=== PATIENT | female | born 1995 | race African-American/Black ===

== ENCOUNTER 2019-03-06 22:34 | Inpatient (IN) | payer OTHER ==
[~2019-03-06] VITALS: Ht 165.1 cm; Wt 64.4 kg
[2019-03-06] MEDS ORDERED: ONDANSETRON HCL INJ 2MG/ML 2ML 2 MG/ML VIAL IV STA (22:42)
[2019-03-06] MEDS ORDERED: KETOROLAC TROMETHAMINE 30 MG/ML VIAL IV STA (22:53)
[2019-03-06] MEDS ORDERED: IOPAMIDOL 370 MG/ML 200 ML INFUS..BTL INJ ONE (22:56)
[2019-03-06] MEDS: SODIUM CHLORIDE 0.9% 1000ML 1,000 ML IV SCH ×2 (22:56→23:46)
[2019-03-06] MEDS ORDERED: SODIUM CHLORIDE 0.9% 50ML 50 ML ONE (22:56)
[2019-03-06] MEDS ORDERED: POTASSIUM CHLORIDE 10MEQ EA PO ONE (23:45)
[2019-03-06] MEDS ORDERED: PIPER-TAZ 3.375 GM 50 ML IV ONE (23:45)
[2019-03-06] MEDS ORDERED: POTASSIUM CHLORIDE 20 MEQ TAB CR PO ONE (23:55)
[2019-03-07] VITALS (9 sets, daily range): BP systolic 108–132; BP diastolic 57–66
[2019-03-07] MEDS ORDERED: MORPHINE SULFATE INJ 4 MG/ML INJ 1ML IV PRN
--- NOTE | 2019-03-07 00:02 | Diagnostic Imaging Report ---
EXAM: CT Abdomen and Pelvis WITH contrast INDICATION: Abdominal Pain COMPARISON: None. TECHNIQUE: Abdomen and pelvis were scanned utilizing a multidetector helical scanner from the lung base to the pubic symphysis after administration of IV contrast. Coronal and sagittal reformations were obtained. Routine protocol was performed. Scan was performed when during portal venous phase. IV CONTRAST: 100 cc of Isovue 370 ORAL CONTRAST: Water COMPLICATIONS: None RADIATION DOSE: Total DLP: 690.4 mGy*cm Estimated effective dose: (DLP x 0.015 x size factor) mSv CTDIvol has been reviewed. It is below the limits set by the Radiation Protocol Committee (RPC). FINDINGS: LINES and TUBES: None. LOWER THORAX: Unremarkable HEPATOBILIARY: No evidence of focal lesion. No biliary ductal dilation. GALLBLADDER: The gallbladder is decompressed without evidence of wall thickening or inflammatory changes. There is trace pericholecystic fluid. SPLEEN: No splenomegaly. PANCREAS: No focal masses or ductal dilatation. ADRENALS: No adrenal nodules KIDNEYS/URETERS: Kidneys enhance symmetrically. No evidence of hydronephrosis, solid mass, or stone. GI TRACT: No evidence of wall thickening or distension. Appendix is normal. PELVIC ORGANS/BLADDER: There is a somewhat tubular appearing cystic area with simple attenuation (11 HU), measuring up to 8.4 x 4.9 cm, predominantly centered in the right adnexa extending posteriorly towards the rectum and with a small sliver extending left of midline (series 2, image 74). There is an IUD in the uterus. LYMPH NODES: No lymphadenopathy. VESSELS: Unremarkable. PERITONEUM / RETROPERITONEUM: No free air. Small amount of free fluid in the pelvis. BONES AND SOFT TISSUES: Unremarkable. CONCLUSION: Cystic area within the pelvis, predominately centered in the right adnexa, extending across midline with simple attenuation. This may represent hydrosalpinx or alternatively adnexal cyst. Pelvic ultrasound is suggested for further evaluation. IUD in the uterus. Decompressed gallbladder without wall thickening or inflammatory changes. Trace pericholecystic fluid, which may reflect volume status, with acute cholecystitis felt to be unlikely. Signed by: Dr. Brea Ferro MD on 03/06/2019 11:59 PM
--- NOTE | 2019-03-07 00:04 | NUR ---
[facility] NOTIFIED OF TRANSFER, SPOKE WITH NEELAM 30 MINUTE ETA GIVEN.
--- NOTE | 2019-03-07 01:10 | NUR ---
RECEIVED PATIENT FROM [facility] VIA EMS. PATIENT ON STRETCHER, AMBULATED TO BED, STEADY GAIT NOTED. PATIENT IS A&OX3. VERY MINIMAL PAIN REPORTED AT THIS TIME TO HER ABDOMEN. SKIN INTACT. LUNG SOUNDS CLEAR. BOWEL SOUNDS NORMAL, PATIENT REPORTS SHE HAS NOT HELD FOOD DOWN IN 5 DAYS. REMINDED PATIENT OF NPO STATUS, VERBALIZED UNDERSTANDING. L AC 20G IV ASYMPTOMATIC, INTACT, AND PATENT. NO S&S OF DISTRESS NOTED. BED LOCKED IN LOWEST POSITION, SIDE RAILS UPX2, CALL LIGHT IN REACH.
--- OUTSIDE RECORDS SUMMARY | 2019-03-07 01:24 | XMS REPORT ---
Author Author [facility] Address Unknown Phone Unavailable Care Team Providers Care Waxer Operator Name Role Phone YSABEL SILVA Unavailable Unavailable Problems This patient has no known problems. Allergies, Adverse Reactions, Alerts This patient has no known allergies or adverse reactions. Medications This patient has no known medications. Results Test Description Test Time Test Comments Text Results Atomic Results Result Comments CT ABD/PEL WITH CONTRAST-HOPD 2019-03-06 23:43:00 [place] [address] Patient Name: JOSIAS CASTANEDA MR #: [id number] : 1995 Age/Sex: 23/F Req #: [id number] Adm Physician: Ordered by: YSABEL SILVA DO Report #: [id number] Location: [facility] Room/Bed: Procedure: [id number] HOPD/CT ABD/PEL WITH CONTRAST-HOPD Exam Date: 03/06/19 Exam Time: 2337 REPORT STATUS: Signed EXAM: CT Abdomen and Pelvis WITH contrast INDICATION: Abdominal Pain COMPARISON: None. TECHNIQUE: Abdomen and pelvis were scanned utilizing a multidetector helical scanner from the lung base to the pubic symphysis after administration of IV contrast. Coronal and sagittal reformations were obtained. Routine protocol was performed. Scan was performed when during portal venous phase. IV CONTRAST: 100 cc of Isovue 370 ORAL CONTRAST: Water COMPLICATIONS: None RADIATION DOSE: Total DLP: 690.4 mGy*cm Estimated effective dose: (DLP x 0.015 x size factor) mSv CTDIvol has been reviewed. It is below the limits set by the Radiation Protocol Committee (RPC). FINDINGS: LINES and TUBES: None. LOWER THORAX: Unremarkable HEPATOBILIARY: No evidence of focal lesion. No biliary ductal dilation. GALLBLADDER: The gallbladder is decompressed without evidence of wall thickening or inflammatory changes. There is trace pericholecystic fluid. SPLEEN: No splenomegaly. PANCREAS: No focal masses or ductal dilatation. ADRENALS: No adrenal nodules KIDNEYS/URETERS: Kidneys enhance symmetrically. No evidence of hydronephrosis, solid mass, or stone. GI TRACT: No evidence of wall thickening or distension. Appendix is normal. PELVIC ORGANS/BLADDER: There is a somewhat tubular appearing cystic area with simple attenuation (11 HU), measuring up to 8.4 x 4.9 cm, predominantly centered in the right adnexa extending posteriorly towards the rectum and with a small sliver extending left of midline (series 2, image 74). There is an IUD in the uterus. LYMPH NODES: No lymphadenopathy. VESSELS: Unremarkable. PERITONEUM / RETROPERITONEUM: No free air. Small amount of free fluid in the pelvis. BONES AND SOFT TISSUES: Unremarkable. CONCLUSION: Cystic area within the pelvis, predominately centered in the right adnexa, extending across midline with simple attenuation. This may represent hydrosa lpinx or alternatively adnexal cyst. Pelvic ultrasound is suggested for further evaluation. IUD in the uterus. Decompressed gallbladder without wall thickening or inflammatory changes. Trace pericholecystic fluid, which may reflect volume status, with acute cholecystitis felt to be unlikely. Signed by: Dr. Lj Pacheco MD on 03/06/2019 11:59 PM Dictated By: LJ PACHECO MD [id number] Transcribed By: CARMEN on 03/06/19 7440 COPY TO: YSABEL SILVA DO
[2019-03-07] MEDS: SODIUM CHLORIDE 0.9% 1000ML 1,000 ML IV SCH ×4 (02:15→23:46)
[2019-03-07] MEDS: ONDANSETRON HCL INJ 2MG/ML 2ML 2 MG/ML VIAL IV PRN ×3 (05:43→23:46)
[2019-03-07 06:01] LABS: BASOPHILS % 0.5 % (0.0-1.0); HEMATOCRIT 39.3 % (34.2-44.1); HEMOGLOBIN 12.7 g/dL (12.0-16.0); LYMPHOCYTES # (AUTO) 0.5 (1.0-3.2); LYMPHOCYTES % 27.6 % (18.0-39.1); MEAN CORPUSCULAR HGB CONC 32.3 g/dL (31-35); MEAN CORPUSCULAR VOLUME 83.4 fL (81-99); MONOCYTES # (AUTO) 0.1 (0.2-0.8); MONOCYTES % 3.6 % (4.4-11.3); NEUTROPHILS # (AUTO) 1.3 (2.1-6.9); NEUTROPHILS % 67.8 % (38.7-80.0); PLATELET COUNT 122 x10e3/uL (140-360); RED BLOOD COUNT 4.71 x10e6/uL (3.6-5.1); RED CELL DISTRIBUTION WIDTH 12.9 % (11.7-14.4)
--- NOTE | 2019-03-07 06:17 | NUR ---
CRITICAL LAB VALUE OF WBC 1.92. SPOKE WITH [employer] CLAIMS ADJUSTER [place] GARZA. NO NEW ORDERS RECEIVED APART FROM NEUTROPENIC ISOLATION.
[2019-03-07 06:25] LABS: ALANINE AMINOTRANSFERASE 72 IU/L (0-55); ALBUMIN 2.8 g/dL (3.5-5.0); ALBUMIN/GLOBULIN RATIO 0.9 (0.8-2.0); ALKALINE PHOSPHATASE 151 IU/L (40-150); ANION GAP 13.2 mmol/L (8-16); BLOOD UREA NITROGEN 6 mg/dL (7-26); BUN/CREATININE RATIO 9 (6-25); CALCIUM 8.2 mg/dL (8.4-10.2); CARBON DIOXIDE 24 mmol/L (22-29); CHLORIDE 99 mmol/L (98-107); CREATININE, SERUM 0.66 mg/dL (0.57-1.11); EST GLOMERULAR FILTRATION RATE > 60 ML/MIN (60-); GLUCOSE 72 mg/dL (74-118); POTASSIUM 3.2 mmol/L (3.5-5.1); SODIUM 133 mmol/L (136-145)
[2019-03-07] MEDS: PIPER-TAZ 3.375 GM 50 ML IV SCH ×2 (06:31)
--- NOTE | 2019-03-07 07:25 | NUR ---
Received patient this morning, a/ox3, no resp distress, in bed and call light within reach, will monitor.
--- NOTE | 2019-03-07 07:54 | NUR ---
Patient with fever 101.2, call to attending and left message, waiting for call back
[2019-03-07 07:58] LABS: PLATELET ESTIMATE MODERATELY DECREASED; PLATELET MORPHOLOGY COMMENT FEW LARGE
--- NOTE | 2019-03-07 08:27 | NUR ---
Laureen returned call and orders for blood cultures, remains NPO, will monitor.
[2019-03-07] MEDS ORDERED: MELATONIN 5 MG TABLET PO PRN (08:45)
[2019-03-07] MEDS ORDERED: HYDRALAZINE HCL 20 MG/ML VIAL IV PRN (08:45)
[2019-03-07] MEDS ORDERED: POTASSIUM CHLORIDE 20MEQ/100ML 200 ML IV ONE (09:00)
--- NOTE | 2019-03-07 09:34 | NUR ---
Second call to Dr. Butler and left message regarding consult.
--- NOTE | 2019-03-07 10:15 | NUR ---
ATTEMPTED TWICE TO DO DPA, STAFF IN THE ROOM, CARING FOR THE PT
--- NOTE | 2019-03-07 10:43 | NUR ---
Orders to change diet from NPO to clears, trial of clears to see if patient can tolerate otherwise if note, change back to NPO
--- NOTE | 2019-03-07 10:43 | NUR ---
Rounds by Dr. Carcamo and states patient might need her gall bladder out but not at this time
--- NOTE | 2019-03-07 11:15 | NUR ---
Patient could not tolerate second back of KCL, substituted with po bill 20meq x1
--- NOTE | 2019-03-07 11:27 | Diagnostic Imaging Report ---
EXAM: Complete Abdominal Ultrasound INDICATION: ^ABD PAIN WITH N/V ^[id number] ^0932 COMPARISON: CT dated 03/06/2019 TECHNIQUE: Transverse and longitudinal images of the upper abdomen were obtained. FINDINGS: Liver: Size: 12.5 cm in the right midclavicular line, normal Appearance: Normal echogenicity, smooth contour Mass: No focal masses Spleen: Size: 15 cm in length, enlarged Echogenicity: Normal Mass: No focal masses Gallbladder: Stones/Sludge: Questionable small amount of sludge. Wall: 0.4 cm Appearance: No pericholecystic fluid or hydrops. Sonographic Louis's Sign: Negative Bile Ducts: Intrahepatic Ducts: No dilatation Extrahepatic Ducts: Common bile duct measures 0.6 cm, no dilatation Pancreas: Visualized pancreas is unremarkable. Right Kidney: Size: 11.3 cm Echogenicity: Normal Parenchymal thickness: Normal Collecting System: No hydronephrosis Stone: None Cyst/Mass: None Left Kidney: Size: 10.4 cm Echogenicity: Normal Parenchymal thickness: Normal Collecting System: No hydronephrosis Stone: None Cyst/Mass: None Vessels: Aorta: Visualized portions are normal Inferior Vena Cava: Visualized portions are normal Main Portal Vein: 0.9 cm, normal size with hepatopetal flow. Free Fluid: No ascites or pleural effusion IMPRESSION: Splenomegaly. Nonspecific mild gallbladder wall thickening, could be due to underdistention. Questionable small amount of sludge. No cholelithiasis. Signed by: Dr. Ruslan Liu MD on 03/07/2019 11:24 AM
--- NOTE | 2019-03-07 11:36 | Diagnostic Imaging Report ---
EXAM: Transabdominal Pelvic Ultrasound INDICATION: ^Right adenxal mass ^[id number] ^1000 COMPARISON: CT dated 03/06/2019 TECHNIQUE: Grayscale transverse and sagittal transabdominal images were obtained of the pelvis. CLINICAL HISTORY: 23 year old A0; last menstrual period: 02/06/2019. FINDINGS: Uterus Orientation: Normal Size: 10.3 x 5.7 x 6.5 cm, Normal Mass: None Cervix: Normal Endometrium: Thickness: 0.5 cm, Normal. Appearance: Homogeneous echotexture without focal thickening. IUD appears to be slightly low-lying (within mid to lower endometrium). Right ovary: Not clearly visualized. Left ovary: Size: 2.3 x 1.6 x 2.7 cm Mass/Cyst: None Adnexa: Free fluid in right adnexa. Serpiginous isoechoic structure in the right adnexa, measuring 4.1 x 4.9 x 2.4 cm. IMPRESSION: Right ovary is not clearly visualized. There is free fluid in the right adnexa, surrounding an irregular serpiginous appearing isoechoic structure, which could represent pyosalpinx. Less likely to represent ovarian mass. IUD in place which appears to the in the mid to lower endometrial canal. Signed by: Dr. Ruslan Liu MD on 03/07/2019 11:33 AM
--- NOTE | 2019-03-07 11:47 | Diagnostic Imaging Report ---
EXAMINATION: CHEST SINGLE (PORTABLE) INDICATION: ^R/O PNA ^[id number] ^1104 COMPARISON: None FINDINGS: AP view TUBES and LINES: None. LUNGS: Lungs are well inflated. Mild retrocardiac hazy desiccation. PLEURA: No pleural effusion or pneumothorax. HEART AND MEDIASTINUM: The cardiomediastinal silhouette is unremarkable. BONES AND SOFT TISSUES: No acute osseous lesion. Soft tissues are unremarkable. UPPER ABDOMEN: No free air under the diaphragm. IMPRESSION: Mild retrocardiac hazy opacification, probably atelectasis. However, developing pneumonia cannot be entirely excluded in the appropriate clinical context. Signed by: Dr. Ruslan Liu MD on 03/07/2019 11:44 AM
[2019-03-07] MEDS: CEFOXITIN 2GM/ D5W 50ML 50 ML IV SCH ×3 (11:58→23:46)
[2019-03-07] MEDS ORDERED: POTASSIUM CHLORIDE 20 MEQ TAB CR PO ONE (12:00)
[2019-03-07 14:51] LABS: BILIRUBIN,URINE MODERATE (NEGATIVE); CLARITY,URINE SL CLOUDY (CLEAR); LEUKOCYTE ESTERASE ,URINE TRACE (NEGATIVE); NITRITE,URINE NEGATIVE (NEGATIVE); PROTEIN,URINE DIPSTICK 1+ (NEGATIVE); URINE UROBILINOGEN 0.2 mg/dL (0.2 - 1)
[2019-03-07 14:52] LABS: COLOR,URINE AMBER (YELLOW); KETONES,URINE 2+ (NEGATIVE)
[2019-03-07 14:55] LABS: BACTERIA,URINE FEW /HPF; EPITHELIAL CELLS,URINE FEW /LPF; RBC,URINE 0-5 /HPF (0-5)
--- NOTE | 2019-03-07 15:06 | NUR ---
Call back from Dr. Butler and will see patient tonight or tomorrow morning
[2019-03-07] MEDS: ACETAMINOPHEN 325 MG TAB PO PRN (16:54)
--- NOTE | 2019-03-07 17:04 | NUR ---
Patient still mounting a fever, medicated with APAP and continues on IV abx, c/o nausea and medicated with Zofran
--- NOTE | 2019-03-07 19:00 | NUR ---
RECEIVED PATIENT IN BEDSIDE REPORT. PATIENT RESTING IN BED AT THIS TIME. A&OX3. PATIENT STATES SHE FEELS MUCH BETTER AFTER RECEIVING MEDICATION FOR FEVER AND NAUSEA. NO PAIN OR NAUSEA REPORTED AT THIS TIME. NO S&S OF DISTRESS NOTED. BED LOCKED IN LOWEST POSITION, SIDE RAILS UPX2, CALL LIGHT IN REACH. WILL CONTINUE TO MONITOR.
--- NOTE | 2019-03-07 23:45 | NUR ---
MD Gary HODGSON IN TO SEE PATIENT
[2019-03-08] VITALS (8 sets, daily range): BP systolic 109–130; BP diastolic 54–73
[2019-03-08] MEDS: MORPHINE SULFATE INJ 4 MG/ML INJ 1ML IV PRN ×2 (00:26→15:16)
[2019-03-08 03:44] LABS: BASOPHILS % 0.3 % (0.0-1.0); HEMATOCRIT 35.7 % (34.2-44.1); HEMOGLOBIN 11.8 g/dL (12.0-16.0); LYMPHOCYTES # (AUTO) 0.4 (1.0-3.2); LYMPHOCYTES % 11.3 % (18.0-39.1); MEAN CORPUSCULAR HEMOGLOBIN 26.9 pg (28-32); MEAN CORPUSCULAR HGB CONC 33.1 g/dL (31-35); MEAN CORPUSCULAR VOLUME 81.5 fL (81-99); MONOCYTES # (AUTO) 0.1 (0.2-0.8); MONOCYTES % 2.8 % (4.4-11.3); NEUTROPHILS # (AUTO) 3.1 (2.1-6.9); PLATELET COUNT 132 x10e3/uL (140-360); RED BLOOD COUNT 4.38 x10e6/uL (3.6-5.1); RED CELL DISTRIBUTION WIDTH 13.2 % (11.7-14.4)
[2019-03-08 04:02] LABS: ALANINE AMINOTRANSFERASE 107 IU/L (0-55); ALBUMIN 2.6 g/dL (3.5-5.0); ALBUMIN/GLOBULIN RATIO 0.8 (0.8-2.0); ALKALINE PHOSPHATASE 152 IU/L (40-150); ANION GAP 11.4 mmol/L (8-16); BLOOD UREA NITROGEN 6 mg/dL (7-26); BUN/CREATININE RATIO 10 (6-25); CARBON DIOXIDE 23 mmol/L (22-29); CHLORIDE 100 mmol/L (98-107); CREATININE, SERUM 0.62 mg/dL (0.57-1.11); EST GLOMERULAR FILTRATION RATE > 60 ML/MIN (60-); GLUCOSE 81 mg/dL (74-118); POTASSIUM 3.4 mmol/L (3.5-5.1); SODIUM 131 mmol/L (136-145)
[2019-03-08] MEDS: ACETAMINOPHEN 325 MG TAB PO PRN ×2 (05:42→16:25)
[2019-03-08] MEDS: CEFOXITIN 2GM/ D5W 50ML 50 ML IV SCH ×3 (06:26→18:06)
[2019-03-08] MEDS ORDERED: POTASSIUM CHLORIDE 20 MEQ TAB CR PO STA (06:30)
--- NOTE | 2019-03-08 07:30 | NUR ---
Received patient this morning, a/ox3, in bed and call light within reach, no distress, will monitor.
[2019-03-08] MEDS: SODIUM CHLORIDE 0.9% 1000ML 1,000 ML IV SCH ×2 (07:56→16:07)
--- NOTE | 2019-03-08 11:21 | Consultation ---
DATE OF CONSULTATION: HISTORY OF PRESENT ILLNESS: Thank you very much for asking me to see this 23-year-old, 1, para 1, who came in complaining of chills and body aches for the last 6 days for which she came to the ER. Her last menstrual period was February 06, 2019. Her symptoms started 6 days ago and got worse together with nausea and vomiting and mild subumbilical pain, but that has resolved later. She has an IUD for contraception Kyleena and her last Pap was over one year ago and has no history of STDs. PAST MEDICAL HISTORY: Significant for lymphedema. PAST SURGICAL HISTORY: section. ALLERGIES: NO KNOWN DRUG ALLERGIES. MEDICATION: No medications. SOCIAL HISTORY: Denies smoking, alcohol, or drug use. PHYSICAL EXAMINATION: VITAL SIGNS: Stable. CHEST: Clear to auscultation. CARDIOVASCULAR: Regular rate and rhythm. ABDOMEN: Soft and nontender. ASSESSMENT AND PLAN: A 23-year-old, 1, para 1 with possibly hydrosalpinx of the right tube/pyosalpinx. She has been afebrile for more than 24 hours. Her white cell count was normal. I would proceed with discharging her with antibiotics for 14 days and to be followed up in the office at that time and probably a repeat ultrasound in a months' time. Once again, thank you very much for asking me to see this patient. Please do not hesitate to call me if I can be of any further help in the future. Joanie Butler MD DD/DORIS /[id number] cc: Isaiah Conrad MD
[2019-03-08] MEDS: ONDANSETRON HCL INJ 2MG/ML 2ML 2 MG/ML VIAL IV PRN ×2 (11:56→15:15)
--- NOTE | 2019-03-08 15:40 | NUR ---
Report given to ELLEN Solano at this time and patient medicated for abdominal pain.
--- NOTE | 2019-03-08 19:00 | NUR ---
RECEIVED REPORT FROM PREVIOUS NURSE. CALL LIGHT WITHIN REACH. PATIENT IN BED.
[2019-03-09] VITALS: BP 136/69
[2019-03-09 03:02] LABS: BASOPHILS % 0.2 % (0.0-1.0); EOSINOPHILS % 0.2 % (0.0-6.0); HEMATOCRIT 33.3 % (34.2-44.1); HEMOGLOBIN 11.2 g/dL (12.0-16.0); LYMPHOCYTES # (AUTO) 0.9 (1.0-3.2); LYMPHOCYTES % 20.4 % (18.0-39.1); MEAN CORPUSCULAR HEMOGLOBIN 27.2 pg (28-32); MEAN CORPUSCULAR HGB CONC 33.6 g/dL (31-35); MEAN CORPUSCULAR VOLUME 80.8 fL (81-99); MONOCYTES # (AUTO) 0.1 (0.2-0.8); MONOCYTES % 2.2 % (4.4-11.3); NEUTROPHILS # (AUTO) 3.5 (2.1-6.9); NEUTROPHILS % 76.3 % (38.7-80.0); PLATELET COUNT 159 x10e3/uL (140-360); RED BLOOD COUNT 4.12 x10e6/uL (3.6-5.1); RED CELL DISTRIBUTION WIDTH 13.4 % (11.7-14.4)
[2019-03-09] MEDS: ONDANSETRON HCL INJ 2MG/ML 2ML 2 MG/ML VIAL IV PRN ×2 (03:10→04:27)
[2019-03-09 03:16] LABS: ANION GAP 10.3 mmol/L (8-16); BLOOD UREA NITROGEN 5 mg/dL (7-26); BUN/CREATININE RATIO 8 (6-25); CARBON DIOXIDE 24 mmol/L (22-29); CHLORIDE 100 mmol/L (98-107); CREATININE, SERUM 0.63 mg/dL (0.57-1.11); EST GLOMERULAR FILTRATION RATE > 60 ML/MIN (60-); GLUCOSE 85 mg/dL (74-118); POTASSIUM 3.3 mmol/L (3.5-5.1); SODIUM 131 mmol/L (136-145)
[2019-03-09 04:00] VITALS: BP 128/61
[2019-03-09] MEDS: SODIUM CHLORIDE 0.9% 1000ML 1,000 ML IV SCH ×2 (04:08→07:56)
[2019-03-09] MEDS: CEFOXITIN 2GM/ D5W 50ML 50 ML IV SCH ×2 (06:08)
--- NOTE | 2019-03-09 06:50 | NUR ---
Received patient lying in bed with eyes open. Respiration even and unlabored without SOB. Call light in reach.
[2019-03-09 07:07] LABS: ALBUMIN 2.4 g/dL (3.5-5.0); BILIRUBIN,DIRECT 1.6 mg/dL (0.0-0.5)
--- NOTE | 2019-03-09 07:15 | NUR ---
GAVE REPORT TO ONCOMING NURSE. CALL LIGHT WITHIN REACH. PATIENT IN BED.
[2019-03-09] MEDS ORDERED: POTASSIUM CHLORIDE 20 MEQ TAB CR PO ONE (07:30)
[2019-03-09 08:08] VITALS: BP 129/77
[2019-03-09] MEDS ORDERED: GADOBENATE DIMEGLUMINE 1 ML IV ONE (08:42)
[2019-03-09] MEDS ORDERED: SODIUM CHLORIDE 0.9% 100 ML ONE (08:42)
[2019-03-09 09:00] VITALS: BP 129/77
[2019-03-09] MEDS ORDERED: DOXYCYCLINE 100MG/NS 100ML 100 ML IV SCH (09:00)
[2019-03-09] MEDS ORDERED: POTASSIUM CHLORIDE 20MEQ/100ML 100 ML IV ONE (09:00)
--- NOTE | 2019-03-09 09:02 | NUR ---
Patient is transported for MRI at this time.
--- NOTE | 2019-03-09 10:00 | NUR ---
Patient is back from MRI.
[2019-03-09 12:00] VITALS: BP 134/85
--- NOTE | 2019-03-09 12:04 | Diagnostic Imaging Report ---
MRI/MRCP of the abdomen, with and without contrast, 03/09/2019. History: Nausea and abdominal pain. Comparison: Ultrasound 03/07/2019. CT 03/06/2019. TECHNIQUE: Multiplanar, multisequence images of the abdomen were acquired without the administration of intravenous gadolinium as per the MRCP protocol. Three-dimensional reconstructions were acquired and utilized by the dictating radiologist at the time of interpretation. Discussion: There is mild diffuse bladder wall thickening but no evidence of cholelithiasis. There is no intrahepatic or extrahepatic ductal dilatation. The CBD measures 5 mm in diameter. There is no intraluminal filling defect. Pancreatic duct is not dilated. The liver, spleen, pancreas, kidneys, and adrenal glands are normal. Bones and visualized bowel are unremarkable. The portal vein is patent measuring 11 mm in diameter. There is minimal perisplenic free fluid. Small pleural effusions are noted bilaterally. IMPRESSION: Mild nonspecific gallbladder wall thickening without evidence of cholelithiasis or choledocholithiasis. Minimal free fluid and small pleural effusions are noted. Otherwise unremarkable exam. Signed by: Reagan Aldana on 03/09/2019 12:01 PM
[2019-03-09] MEDS ORDERED: METRONIDAZOLE 500MG/NS 100ML 100 ML IV SCH (14:00)
--- NOTE | 2019-03-09 16:51 | NUR ---
Spoke with and notified about patient is tolerating food without abdominal pain, notified about the liver enzymes. States he will see the patient tomorrow and not to D/C patient today.
[2019-03-09] MEDS ORDERED: DOXYCYCLINE HYCLATE TABLET 100 MG TAB PO SCH (17:00)
[2019-03-09] MEDS ORDERED: METRONIDAZOLE 500 MG TAB PO SCH (17:00)
[2019-03-09] MEDS ORDERED: MORPHINE SULFATE 2 MG/ML SYR 1ML IV PRN (17:15)
--- NOTE | 2019-03-09 17:20 | NUR ---
Patient verbalized to wants to leave AMA. Patient informed about the risk for leaving AMA. Patient is adamant about leaving. Notified Laureen Bianchi. Patient signed the AMA form. PIV to left AC discontinued, catheter tip intact, no bleeding noted.
--- NOTE | 2019-03-10 16:16 | Discharge Summary ---
ADMISSION DIAGNOSES: 1. Abdominal pain with nausea and vomiting. 2. Right adnexal cyst. 3. Hypokalemia. 4. Transaminitis. DISCHARGE DIAGNOSES: 1. Abdominal pain with nausea and vomiting. 2. Right adnexal cyst. 3. Hypokalemia. 4. Transaminitis. 5. Rule out cholelithiasis, rule out choledocholithiasis, possible hydrosalpinx of the right tube/pyosalpinx. HISTORY: Left lower extremity lymphedema. SURGICAL HISTORY: x1. FAMILY HISTORY: Noncontributory. SOCIAL HISTORY: Occasional alcohol use and the patient admits to smoking weed occasionally. HOSPITAL COURSE: A 23-year-old female admits with complaints of nausea and vomiting that began Saturday. On Saturday, she began having dull intermittent left lower quadrant abdominal pain. She denies fever and diarrhea as well as dysuria. She is sexually active with one person and denies STDs. She had an IUD placed in October of 2017. On admission, lipase was within normal limits. WBC was 1.92, indicating viral infection. Hepatitis panel was ordered due to the transaminitis and was still pending at the time of discharge. CT of the abdomen showed cystic area within the pelvis, predominantly centered in the right adnexa extending across midline with simple attenuation. Ultrasound of the abdomen showed splenomegaly, nonspecific mild gallbladder wall thickening, no cholelithiasis. Chest x-ray showed mild retrocardiac hazy opacification, probably atelectasis. Ultrasound of the pelvis showed right ovary not clearly visualized, free fluid in the right adnexa surrounding irregularly serpiginous appearing isoechoic structure which could represent pyosalpinx. Urine culture negative. Blood culture negative. Cafeteria Cook and Surgery were both consulted as well as GI. Per Dr. Butler, the patient was prescribed 14 days of doxycycline and Flagyl. As some of the patient's liver labs were trending up, the patient was advised to stay overnight again until we got the results from the hepatitis panel, but she refused. She did have an MRCP before leaving AMA, which was negative. The patient was advised to still follow up with GI regarding the hepatitis panel. She was given the prescription for Flagyl and doxycycline even though she left AMA. Vital signs stable. The patient afebrile. The patient understands risks associated with going AMA and accepts responsibility. Dictated by Laureen Bianchi, HEAD TRACK COACH MD RASHID Appiah/DORIS /[id number]
== END 2019-03-09 17:37 | disposition left against medical advice (07) | DRG 392 ==
LOC: FSED 22:34 → ERHOLD 23:57 → MED/SURG 03-07 01:34 → OBSVTOIN 03-08 11:39
PROVIDERS: ADMIT Internal Medicine; ATTEND Internal Medicine
DX: R10.9 Unspecified abdominal pain (principal); N70.11 Chronic salpingitis; N83.291 Other ovarian cyst, right side; E87.6 Hypokalemia; R74.0 Nonspecific elevation of levels of transaminase and lactic acid dehydrogenase [LDH]; R16.1 Splenomegaly, not elsewhere classified; K82.9 Disease of gallbladder, unspecified; I89.0 Lymphedema, not elsewhere classified
CPT/HCPCS: 36415; 71045; 74177; 74183; 76700; 76856; 80048; 80053; 80076; 81001; 81003; 81025; 83690; 85025; 87040; 87086; 87110; 87491; 87591; 96374; 96376; 99284; G0378; J0694; J1885; J2270; J2405; J2543; J3480; J7030; J7050; Q9967